=== PATIENT | female | born 1965 | race Caucasian/White ===

== ENCOUNTER 2022-12-04 09:49 | Outpatient (OUT) | payer OTHER, SELFPAY ==
[2022-12-04 11:25] LABS: Estimated Average Glucose 120 mg/dL; Glycohemoglobin A1C 5.8 % (4.5-6.2)
== END 2022-12-04 09:50 | disposition home or self-care (01) ==
LOC: LAB 09:49
PROVIDERS: PCP Nurse Practitioner; Visit Provider Nurse Practitioner
DX: R73.09 Other abnormal glucose (principal)
CPT/HCPCS: 36415; 83036

== ENCOUNTER 2022-12-25 13:48 | Outpatient (OUT) | payer OTHER, SELFPAY ==
--- NOTE | 2022-12-25 14:30 | MM_ITS ---
Patient: MEME CRUZ Exam Date: 12/25/2022 : 1965 Gender:F Ordering : [facility] MANAGER Admission #: [id number] Family : Order #: [id number] CLICK HERE TO VIEW EXAM RADIOLOGY REPORT PROCEDURE: MM DIAGNOSTIC MAMMO UNILAT LT COMPARISON: US BREAST LEFT LIMITED, 05/28/2022. US BREAST LT COMPLETE, 12/25/2022. MG MAMM DIAGNOSTIC 3D [place] CAD, 05/28/2022. INDICATIONS: Abnormal mammogram R92.8, Breast lump N63.25 Calculator Name NCI Breast Cancer Risk Assessment Tool 5 Year Breast Cancer Risk 0.80% Lifetime Breast Cancer Risk 6.00% Personal Breast Cancer No Personal Ovarian Cancer No Treatments None Family Cancers Grandmother-paternal with lung cancer at age 80. LOCATION: [facility] BREAST COMPOSITION: Extremely dense, which lowers the sensitivity of mammography. FINDINGS: DIAGNOSTIC CATEGORY 3--PROBABLY BENIGN FINDING. THE FOLLOWING FINDING(S) HAS A HIGH PROBABILITY OF A BENIGN ETIOLOGY: Left breast is stable in size and overall fibroglandular configuration with multiple well-circumscribed nodules which appear grossly stable. Ultrasound demonstrates multiple cystic lesions many of which are anechoic and simple cysts. There are 3 indeterminate lesions at the 12 o'clock position measuring 6.1 x 3.1 x 4.2 cm, at the 1 o'clock position measuring 9.4 x 7.7 x 7.5 mm and a 3rd lesion at the 1 o'clock position measuring 6.8 x 5.3 x 6.2 mm. These lesions have thick ramirez with internal low level echoes however no definite color flow could be demonstrated in these lesions are stable in size from the prior exam. As these lesions have only been evaluated for 6 months. One additional ultrasound in 6 months is recommended to document stability. RECOMMENDATIONS: SHORT TERM FOLLOW-UP ULTRASOUND LEFT BREAST IN 6 MONTHS. PLEASE NOTE: A NORMAL MAMMOGRAM DOES NOT EXCLUDE THE POSSIBILITY OF BREAST CANCER. A CLINICALLY SUSPICIOUS PALPABLE LUMP SHOULD BE BIOPSIED. Dictated by: Wander Thomas MD on 12/25/2022 at 14:40 Approved by: Wander Thomas MD on 12/25/2022 at 14:46
== END 2022-12-25 13:49 | disposition home or self-care (01) ==
LOC: MAMMO 13:49
PROVIDERS: PCP Nurse Practitioner; Visit Provider Nurse Practitioner
DX: R92.8 Other abnormal and inconclusive findings on diagnostic imaging of breast (principal); N63.25 Unspecified lump in the left breast, overlapping quadrants; Z80.1 Family history of malignant neoplasm of trachea, bronchus and lung
CPT/HCPCS: 76641; 77065

== ENCOUNTER 2023-06-25 14:49 | Outpatient (OUT) | payer OTHER, SELFPAY ==
--- NOTE | 2023-06-25 14:52 | US_ITS ---
Patient Name: MEME CRUZ MR#: [id number] : 1965 Exam Date: 06/25/2023 Ordering Doctor: WE[facility] Avila CNP RADIOLOGY REPORT PROCEDURE: US BREAST LT COMPLETE COMPARISON: US BREAST LEFT LIMITED, 05/28/2022. US BREAST LT COMPLETE, 12/25/2022. INDICATIONS: abnormal ultrasound of breast R92.8 TECHNIQUE: Breast ultrasound was performed, with evaluation focusing only on specific areas of concern. FINDINGS: DIAGNOSTIC CATEGORY 2--BENIGN FINDING: LEFT BREAST: Ultrasound evaluation again demonstrates numerous simple and complex appearing cystic structures scattered throughout the breast without overtly suspicious findings. Structures are grossly stable compared to 1 year ago. Multiplicity also favors benign etiology. Follow-up in 1 year recommended. RECOMMENDATIONS: ROUTINE MAMMOGRAM AND CLINICAL EVALUATION IN 12 MONTHS. Active recommendations from prior exams: SHORT TERM FOLLOW-UP ULTRASOUND LEFT BREAST IN [#MONTHS] MONTHS. Due on 06/26/2023. PLEASE NOTE: A NORMAL ULTRASOUND EXAMINATION DOES NOT EXCLUDE THE POSSIBILITY OF BREAST CANCER. A CLINICALLY SUSPICIOUS PALPABLE LUMP SHOULD BE BIOPSIED. Dictated by: Mason Cho M.D. on 06/25/2023 at 16:11 Approved by: Mason Cho M.D. on 06/25/2023 at 16:17
== END 2023-06-25 14:50 | disposition home or self-care (01) ==
LOC: US 14:49
PROVIDERS: PCP Nurse Practitioner; Visit Provider Nurse Practitioner
DX: R92.8 Other abnormal and inconclusive findings on diagnostic imaging of breast (principal)
CPT/HCPCS: 76641